=== PATIENT | female | born 1950 | race Caucasian/White ===

== ENCOUNTER 2019-09-15 13:00 | Outpatient (RCR) | payer SELFPAY | END 2019-09-15 23:59 | disposition home or self-care (01) | LOC: ANHAUDIO 13:00 | PROVIDERS: PCP Otolaryngology; Visit Provider Family Medicine | DX: Z46.1 Encounter for fitting and adjustment of hearing aid (principal) | CPT/HCPCS: 99199 ==

== ENCOUNTER 2020-03-07 11:22 | Outpatient (CLI) | payer MEDICARE, OTHER, SELFPAY ==
--- NOTE | ~2020-03-07 | XR_ITS ---
XR shoulder RT min 2V DATE: 03/07/2020 11:55 INDICATION: Chronic shoulder pain for years TECHNIQUE: 4 views COMPARISON: None FINDINGS: Diffuse osteopenia. Diffuse idiopathic skeletal hyperostosis of the thoracic spine. No fracture or dislocation, periosteal reaction or bone destruction of the right shoulder. IMPRESSION: Osteopenia No fracture or dislocation or abnormal soft tissue calcification of the right shoulder Reviewed, dictated and finalized at location B. IMPRESSION: Osteopenia No fracture or dislocation or abnormal soft tissue calcification of the right s houlder
== END 2020-03-07 11:23 | disposition home or self-care (01) ==
LOC: ANHIMG 11:35
PROVIDERS: PCP Physician Assistant; Visit Provider Physician Assistant
DX: M85.811 Other specified disorders of bone density and structure, right shoulder (principal)
CPT/HCPCS: 73030

== ENCOUNTER 2020-03-10 15:00 | Outpatient (RCR) | payer SELFPAY | END 2020-03-10 23:59 | disposition home or self-care (01) | LOC: ANHAUDIO 15:00 | PROVIDERS: PCP Physician Assistant; Visit Provider Otolaryngology | DX: Z46.1 Encounter for fitting and adjustment of hearing aid (principal) | CPT/HCPCS: 99199 ==

== ENCOUNTER 2020-03-29 15:38 | Outpatient (CLI) | payer MEDICARE, OTHER, SELFPAY ==
--- NOTE | ~2020-03-29 | MM_ITS ---
EXAMINATION: MM screening [facility] BI w rashad HISTORY: Screening mammogram TECHNIQUE: Craniocaudal and mediolateral oblique 3-D tomosynthesis images were obtained and synthetic 2-D images were generated. CAD analysis was submitted and interpreted. COMPARISON: 06/12/2018, 05/03/2016, 09/07/2014 BREAST PARENCHYMAL COMPOSITION: There are scattered areas of fibroglandular density. FINDINGS: There is no evidence of suspicious mass, calcification, or architectural distortion to sugg est malignancy in either breast. There has been no suspicious interval change. IMPRESSION: 1. No mammographic evidence of malignancy. 2. Recommend routine screening mammography in one year. BI-RADS Category 1: Negative Reviewed, dictated and finalized at location A.
== END 2020-03-29 15:39 | disposition home or self-care (01) ==
LOC: ANHIMG 15:53
PROVIDERS: PCP Physician Assistant; Visit Provider Obstetrics & Gynecology
DX: Z12.31 Encounter for screening mammogram for malignant neoplasm of breast (principal)
CPT/HCPCS: 77063; 77067

== ENCOUNTER 2020-09-11 14:51 | Emergency (ER) | payer MEDICARE, OTHER, SELFPAY ==
--- NOTE | 2020-09-11 14:58 | ED.SKABFB ---
HPI - Skin/Abscess/Foreign Bdy General Chief complaint: Skin/Abscess/Foreign Body Stated complaint: shingles Time Seen by Provider: 09/11/20 15:00 Source: patient, family and RN notes reviewed Mode of arrival: ambulatory Limitations: no limitations History of Present Illness HPI narrative: 70-year-old female presents to express care with complaints of burning and itching to the right lower back area that extends along her ribs which started night before last. She reports that last night she noticed red raised lesions along her right sided lower back which itch and burn. She denies any other lesions noted elsewhere, denies any fevers, chills or sweats, denies any other ill symptoms. MD complaint: rash Onset (ago): day(s) (2) Location: back Severity: mild Severity scale (1-10): 3 Quality: burning and pruritic Pain Consistency: intermittent Exacerbating factors: palpation Associated symptoms: itching and other (burning pain) Treatments prior to arrival: none Related Data Home Medications Medication Instructions Recorded Confirmed aspirin 81 mg PO DAILY 09/11/20 09/11/20 atenolol 09/11/20 metformin mg 09/11/20 omeprazole 09/11/20 simvastatin mg 09/11/20 Allergies Allergy/AdvReac Type Severity Reaction Status Date / Time No Known Allergies Allergy Verified 01/24/18 20:48 Review of Systems Review of Systems: Narrative: CONSTITUTIONAL: Denies fever, chills, or sweats. EYES: Denies visual changes, redness, or discharge. ENT: Denies rhinorrhea, congestion, sore throat, or otalgia. CARDIOVASCULAR: Denies chest pain, palpitations, or edema. RESPIRATORY: Denies cough or dyspnea. GASTROINTESTINAL: Denies abdominal pain, nausea, vomiting, or diarrhea. GENITOURINARY: Denies dysuria or hematuria. SKIN: positive rash or itching right lower back MUSCULOSKELETAL: Positive burning type of right lower back pain radiates to anterior along nerve line,no joint pain, or myalgia. NEUROLOGIC: Denies headache, numbness, or weakness. PSYCHIATRIC: Positive history of anxiety or depression. All systems reviewed & are unremarkable except as noted in HPI and below PMFSH Past Medical History Medical History (Updated 09/11/20 @ 15:43 by Vicenta Hernandes NP) Anxiety and depression Diabetes Hemorrhoids Hyperlipidemia Hypertension Hypothyroidism Surgical History Surgical History (Updated 09/11/20 @ 15:44 by Vicenta Hernandes NP) H/O section H/O hernia repair History of hysterectomy History of tubal ligation Hx of appendectomy Hx of dilation and curettage Hx of tonsillectomy S/p bilateral carpal tunnel release Family History Family History Father Diabetes mellitus Family history of diabetes mellitus in first degree relative Other Family history of arthritis Family history of cardiovascular disease Family history of malignant neoplasm Social History Social History (Updated 09/11/20 @ 15:44 by Vicenta Hernandes NP) Smoking status: Never smoker Alcohol intake: never Substance use: never Living arrangements: alone Additional living arrangements comments: lost spouse recently Gender identity (if verbalized by the patient): Female Comments At time of signature, agree with nursing past medical, surgical, social and family history. There is no relevant family history pertinent to the presenting complaint Exam Narrative: Exam Narrative: GENERAL: Well-appearing, well-nourished, and in no acute distress. HEAD: Normocephalic, atraumatic. EYES: PERRLA and EOMI. ENT: Nares clear, no rhinorrhea or epistaxis. Mucous membranes moist. NECK: Supple.no lymphadenopathy CHEST: Clear to auscultation. No respiratory distress.SAO2 97% on room air HEART: Regular rate and rhythm. No murmur heard. Normal peripheral pulses. ABDOMEN: Soft, nontender, nondistended, normal active bowel sounds. EXTREMITIES: Normal range of motion. No edema. SKIN: Warm, dry, re
[2020-09-11 15:01] VITALS: BP 139/77; PULSE 65; RESP 20; TEMP 36.4; O2SAT 97
[2020-09-11 15:05] VITALS: BP 139/77; PULSE 65; RESP 20; TEMP 36.4; O2SAT 97
== END 2020-09-11 15:26 | disposition home or self-care (01) ==
PROVIDERS: Emergency Provider Registered Nurse; PCP Family Medicine
DX: B02.9 Zoster without complications (principal); E11.9 Type 2 diabetes mellitus without complications; E78.5 Hyperlipidemia, unspecified; I10 Essential (primary) hypertension; E03.9 Hypothyroidism, unspecified; Z79.82 Long term (current) use of aspirin
CPT/HCPCS: 99213; G0463

== ENCOUNTER 2020-10-24 13:02 | Outpatient (CLI) | payer MEDICARE, OTHER, SELFPAY | END 2020-10-24 13:03 | disposition home or self-care (01) | LOC: ANHAUDIO 13:04 | PROVIDERS: PCP Family Medicine; Visit Provider Family Medicine | DX: H91.90 Unspecified hearing loss, unspecified ear (principal) | CPT/HCPCS: 92557; 92567 ==

== ENCOUNTER 2020-11-05 07:35 | Outpatient (CLI) | payer MEDICARE, OTHER, SELFPAY ==
--- NOTE | ~2020-11-05 | MR_ITS ---
EXAMINATION: MR brain IAC wo con DATE: 11/05/2020 08:46 INDICATION: Other specified right-sided hearing loss. TECHNIQUE: Magnetic resonance imaging (MRI) of the brain, brainstem, and internal auditory canals was performed without intravenous contrast. Sequences included sagittal and axial T1-weighted FSE, axial diffusion-weighted FS EPI, axial T2*-weighted GRE, axial T2-weighted FLAIR Propeller, axial T2-weigh rmoana Propeller, small [id number] coronal FIESTA, small pwwae-gx-fxmt coronal T1-weighted FSE, and s mall [id number]-ad-pgnv axial T1-weighted SPGR. Vanita Apparent diffusion coefficient (ADC) maps were cr eated. COMPARISON: None. FINDINGS: There are scattered areas of nonspecific increased T2-weighted signal intensity in the cere bral white matter, which is within normal limits for the patient's age. There is no intracranial hemo rrhage, acute infarction, or abnormal intracranial mass lesion. The ventricles are normal in size. Th ere is mild mucosal thickening in right maxillary sinus. The internal auditory canals and inner and m iddle ears are normal. The mastoid air cells are normal. The orbits are normal. IMPRESSION: 1. Normal aging brain. Reviewed, dictated and finalized at location A. IMPRESSION: 1. Normal aging brain.
== END 2020-11-05 07:36 | disposition home or self-care (01) ==
PROVIDERS: PCP Family Medicine; Visit Provider Family Medicine
DX: H91.8X1 Other specified hearing loss, right ear (principal)
CPT/HCPCS: 70551

== ENCOUNTER → 2020-11-25 06:36 | Outpatient (CLI) | payer MEDICARE, OTHER, SELFPAY ==
[2020-11-25 21:02] LABS: SARS-CoV-2 RNA PCR Positive
== END ==
PROVIDERS: PCP Family Medicine; Visit Provider Family Medicine
DX: U07.1 COVID-19 (principal)
CPT/HCPCS: C9803; U0003; U0005

== ENCOUNTER 2020-11-28 10:34 | Outpatient (RCR) | payer MEDICARE, OTHER, SELFPAY ==
[2020-11-28] MEDS: diphenhydrAMINE HCl CAP 25 MG CAPSULE PO (13:12)
[2020-11-28] MEDS: ACETAMINOPHEN 325 MG TABLET 650 MG PO (13:13)
[2020-11-28 13:18] VITALS: BP 145/70; PULSE 70; RESP 16; TEMP 36.8; O2SAT 96
[2020-11-28] MEDS: FAMOTIDINE 20 MG TABLET PO (13:51)
[2020-11-28 14:09] VITALS: BP 154/72; PULSE 68; RESP 16; TEMP 36.9; O2SAT 96
[2020-11-28 15:30] VITALS: BP 146/63; PULSE 66; RESP 16; TEMP 36.7; O2SAT 98
== END 2020-11-28 16:30 | disposition home or self-care (01) ==
LOC: AMCINF 10:34
PROVIDERS: PCP Family Medicine; Visit Provider Internal Medicine Hematology & Oncology
DX: Z23 Encounter for immunization (principal); U07.1 COVID-19
CPT/HCPCS: A9270; M0245; Q0245

== ENCOUNTER → 2021-03-21 05:37 | Outpatient (CLI) | payer MEDICARE, OTHER, SELFPAY ==
[2021-03-21 21:10] LABS: SARS-CoV-2 RNA PCR Negative
== END ==
PROVIDERS: PCP Family Medicine; Visit Provider Internal Medicine Gastroenterology
DX: Z01.812 Encounter for preprocedural laboratory examination (principal); Z20.822 Contact with and (suspected) exposure to COVID-19
CPT/HCPCS: C9803; U0003; U0005

== ENCOUNTER 2021-04-07 00:31 | Day surgery (SDC) | payer MEDICARE, OTHER, SELFPAY ==
[2021-03-14 15:04] VITALS: BMI 40.6
[2021-03-30 10:29] VITALS: BMI 40.3
--- NOTE | 2021-04-06 12:40 | PM.HPGS ---
History of Present Illness History of Present Illness Consent: Risks, benefits, and alternatives have been discussed and questions answered. Patient agrees to proceed with procedure. Chief complaint: neoplasm screening Narrative: Kayy Loza is a 70 year old female was referred for colon cancer screening. She had an unremarkable colonoscopy in 2007, except for the finding of hemorrhoids Review of Systems Review of Systems: All systems reviewed & are unremarkable except as noted in HPI and below PMFSH Past Medical History Medical History Anxiety and depression Diabetes Hemorrhoids Hyperlipidemia Hypertension Hypothyroidism Surgical History Surgical History H/O section H/O hernia repair History of hysterectomy History of tubal ligation Hx of appendectomy Hx of dilation and curettage Hx of tonsillectomy S/p bilateral carpal tunnel release Family History Family History Father Diabetes mellitus Family history of diabetes mellitus in first degree relative Other Family history of arthritis Family history of cardiovascular disease Family history of malignant neoplasm Social History Social History Smoking status: Never smoker Alcohol intake: never Substance use: never Living arrangements: alone Additional living arrangements comments: lost spouse recently Gender identity (if verbalized by the patient): Female Spiritual care concerns: No Meds Home Medications and Allergies Home Medications Medication Instructions Recorded Confirmed Type aspirin 81 mg PO DAILY 09/11/20 03/30/21 History atenolol 50 mg PO DAILY 09/11/20 04/07/21 History omeprazole 20 mg PO DAILY 09/11/20 03/30/21 History simvastatin 20 mg PO DAILY 09/11/20 03/30/21 History loratadine [Claritin] 10 mg PO DAILY PRN 11/28/20 03/30/21 History metformin 1,000 mg PO DAILY 11/28/20 03/30/21 History multivitamin 1 tablet PO DAILY 11/28/20 03/30/21 History sertraline 100 mg PO DAILY 11/28/20 03/30/21 History Allergies Allergy/AdvReac Type Severity Reaction Status Date / Time No Known Allergies Allergy Verified 04/07/21 11:08 Exam Resp: Auscultation: clear to auscultation bilaterally Cardio: Rate: regular rate Rhythm: regular rhythm GI: GI Palp: Yes Soft to palpation and No Tenderness to palpation present (GI) Assessment and Plan Assessment and plan (1) Colon cancer screening: Code(s): Z12.11 - Encounter for screening for malignant neoplasm of colon Status: Acute Assessment and Plan: Colonoscopy with possible biopsy or polypectomy or cautery or injection of substances.
[2021-04-07 11:18] VITALS: BP 144/80; PULSE 62; RESP 18; TEMP 36.1; O2SAT 96; BMI 39.8
[2021-04-07 11:29] LABS: Glucose Point of Care 116 mg/dl (65-105)
[2021-04-07] MEDS: LACTATED RINGERS 1,000 ML 150 ML IV CONT (11:30)
--- NOTE | 2021-04-07 11:45 | WPDANESEPPF ---
Anes - Initial Pre Proc Eval Procedure: Operation Date: 04/07/21 11:30 Proposed Procedures p Screening Colonoscopy - Jairo Jimenez MD Date/Time: 04/07/21 11:45 Surgeon: Jairo Jimenez MD Pre Op Diagnosis: neoplasm screening Patient Data Age: 70 Gender: F Height: 1.57 m Weight: 98.8 kg Last Vital Signs Temp 97 F L 04/07/21 11:18 Pulse 62 04/07/21 11:18 Resp 18 04/07/21 11:18 BP 144/80 H 04/07/21 11:18 Pulse Ox 96 04/07/21 11:18 Allergies Allergy/AdvReac Type Severity Reaction Status Date / Time No Known Allergies Allergy Verified 04/07/21 11:08 Home Medications Medication Instructions Recorded Confirmed Type aspirin 81 mg PO DAILY 09/11/20 03/30/21 History atenolol 50 mg PO DAILY 09/11/20 04/07/21 History omeprazole 20 mg PO DAILY 09/11/20 03/30/21 History simvastatin 20 mg PO DAILY 09/11/20 03/30/21 History loratadine [Claritin] 10 mg PO DAILY PRN 11/28/20 03/30/21 History metformin 1,000 mg PO DAILY 11/28/20 03/30/21 History multivitamin 1 tablet PO DAILY 11/28/20 03/30/21 History sertraline 100 mg PO DAILY 11/28/20 03/30/21 History Laboratory Tests 04/07/21 11:27 POC Capillary Glucose 116 mg/dl H mg/dl (65-105) Patient hx anesthesia problems: none Family hx anesthesia problems: none PMFSH Past Medical History Medical History Anxiety and depression Diabetes Hemorrhoids Hyperlipidemia Hypertension Hypothyroidism Surgical History Surgical History H/O section H/O hernia repair History of hysterectomy History of tubal ligation Hx of appendectomy Hx of dilation and curettage Hx of tonsillectomy S/p bilateral carpal tunnel release Family History Family History Father Diabetes mellitus Family history of diabetes mellitus in first degree relative Other Family history of arthritis Family history of cardiovascular disease Family history of malignant neoplasm Social History Social History Smoking status: Never smoker Alcohol intake: never Substance use: never Living arrangements: alone Additional living arrangements comments: lost spouse recently Gender identity (if verbalized by the patient): Female Spiritual care concerns: No Anes - Eval Final PreProcedure Day of Procedure 04/07/21 11:45 Patient weight: morbidly obese Heart: regular rate and rhythm Lungs: clear to auscultation Airway: Mallampati scale class II Neurological: alert and oriented Last oral intake: >/= 8 hours ASA classification: III Emergent: yes Anesthetic plan: proceed Anesthesia type and monitoring: general GIVS and standard monitoring Informed Consent: The patient's anesthetic plan and its attendant risks and benefits were discussed with the patient/family/POA. Questions were solicited and answers provided to the satisfaction of the patient/family/POA.
[2021-04-07 12:13] VITALS: BP 106/58; PULSE 55; RESP 21; O2SAT 98
[2021-04-07 12:23] VITALS: BP 108/62; PULSE 58; RESP 15; O2SAT 98
[2021-04-07 12:33] VITALS: BP 121/70; PULSE 56; RESP 20; O2SAT 96
== END 2021-04-07 12:53 | disposition home or self-care (01) ==
PROVIDERS: PCP Family Medicine; Visit Provider Internal Medicine Gastroenterology
PROC: 0DJD8ZZ Inspection of Lower Intestinal Tract, Via Natural or Artificial Opening Endoscopic (ICD-10-PCS; CPT 45378; principal; 2021-04-07 11:30)
DX: Z12.11 Encounter for screening for malignant neoplasm of colon (principal); I10 Essential (primary) hypertension; E11.9 Type 2 diabetes mellitus without complications; E78.5 Hyperlipidemia, unspecified; E03.9 Hypothyroidism, unspecified; F32.9 Major depressive disorder, single episode, unspecified; F41.9 Anxiety disorder, unspecified; Z90.710 Acquired absence of both cervix and uterus
CPT/HCPCS: G0121; 82948; J2704; J7120

== ENCOUNTER → 2021-05-19 13:16 | Outpatient (CLI) | payer MEDICARE, OTHER, SELFPAY ==
--- NOTE | ~2021-05-19 | CT_ITS ---
EXAMINATION: CT abdomen pelvis wo con DATE: 05/19/2021 14:08 INDICATION: Generalized abdominal pain TECHNIQUE: Computed tomography (CT) of the abdomen and pelvis was performed without intravenous contr ast. Automated exposure control and iterative reconstruction technique were employed. The dose-length product was 1014.09 mGy-cm. COMPARISON: CT abdomen dated 06/10/2008 FINDINGS: Lung bases are clear. Heart size is normal. Small amount of atherosclerotic coronary artery calcifica tion. No pericardial or pleural effusion. Liver, gallbladder, bilateral adrenal glands are normal. Co uple tiny foci of gas at the body of the pancreas likely within a pancreatic duct. Pancreas is otherw ise unremarkable with no surrounding inflammatory stranding to suggest acute interstitial pancreatiti s. Multiple splenic calcifications consistent with old granulomatous disease. Bilateral hyperdense pr oteinaceous/hemorrhagic cysts the largest on the left measuring 10 mm . No urolithiasis or hydronephr osis. There is mild colonic diverticulosis with a sigmoid predominance. There is no adjacent inflamm atory change to suggest diverticulitis. The appendix is again not visualized and likely surgically ab sent. No bowel obstruction. Interval ventral hernia mesh repair. Bladder is normal. The uterus is not identified and has likely been surgically resected. No free intraperitoneal gas or fluid. No patholo gically enlarged abdominal or pelvic lymphadenopathy. Mild lumbar levocurvature with mild spondylosis . IMPRESSION: 1. A couple tiny foci of gas within the body of the pancreas likely within the main pancreatic duct w hich is of indeterminate significance. No inflammatory stranding to suggest acute interstitial pancre atitis but would correlate with amylase and lipase levels and for history of prior sphincterotomy. Reviewed, dictated and finalized at location A. IMPRESSION: 1. A couple tiny foci of gas within the body of the pancreas likely within the main pancreatic duct which is of indeterminate significance. No inflammatory st randing to suggest acute interstitial pancreatitis but would correlate with case lase and lipase levels and for history of prior sphincterotomy.
== END ==
PROVIDERS: PCP Family Medicine; Visit Provider Family Medicine
DX: R10.84 Generalized abdominal pain (principal)
CPT/HCPCS: 74176

== ENCOUNTER → 2021-08-01 02:01 | Outpatient (CLI) | payer MEDICARE, OTHER, SELFPAY ==
[2021-08-02 03:58] LABS: SARS-CoV-2 RNA PCR Negative
== END ==
PROVIDERS: PCP Family Medicine; Visit Provider Physician Assistant
DX: R68.89 Other general symptoms and signs (principal); Z20.822 Contact with and (suspected) exposure to COVID-19
CPT/HCPCS: C9803; U0003; U0005

== ENCOUNTER → 2022-11-28 11:51 | Outpatient (CLI) | payer MEDICARE, SELFPAY ==
--- NOTE | ~2022-11-28 | XR_ITS ---
EXAMINATION: XR sacrum coccyx min 2V INDICATION: Sacrococcygeal disorders not elsewhere classified TECHNIQUE: Three views of the sacrum and coccyx are obtained. COMPARISON: None available FINDINGS: Bone alignment is normal. There is no fracture. There is moderate lower lumbar spondylosis. Phleboliths are noted in the pelvis. There is mild osteoarthritis of the hips. IMPRESSION: 1. No acute osseous abnormality. Reviewed, dictated and finalized at location B.
--- NOTE | ~2022-11-28 | MM_ITS ---
EXAMINATION: MM screening [facility] BI w rashad HISTORY: Screening mammogram TECHNIQUE: Craniocaudal and mediolateral oblique 3-D tomosynthesis images were obtained and synthetic 2-D images were generated. CAD analysis was submitted and interpreted. COMPARISON: 03/29/2020, 06/12/2018, 05/03/2016 lateral screening mammogram examinations BREAST PARENCHYMAL COMPOSITION: There are scattered areas of fibroglandular density. FINDINGS: There is no evidence of suspicious mass, calcification, or architectural distortion to sugg est malignancy in either breast. There has been no suspicious interval change. IMPRESSION: 1. No mammographic evidence of malignancy. 2. Recommend routine screening mammography in one year. BI-RADS Category 1: Negative Reviewed, dictated and finalized at location A.
== END ==
PROVIDERS: PCP Family Medicine; Visit Provider Physician Assistant
DX: Z12.31 Encounter for screening mammogram for malignant neoplasm of breast (principal); M53.3 Sacrococcygeal disorders, not elsewhere classified
CPT/HCPCS: 72220; 77063; 77067

== ENCOUNTER 2023-03-16 13:05 | Emergency (ER) | payer MEDICARE, SELFPAY ==
[2023-03-16 13:15] VITALS: BP 140/51; PULSE 59; RESP 16; TEMP 36.9; O2SAT 97
--- NOTE | 2023-03-16 13:38 | ED.FALL ---
HPI - Fall General Chief Complaint: Eye Problems Stated Complaint: Lt Eye Swelling Due To Fall Time Seen by Provider: 03/16/23 13:28 Source: patient and RN notes reviewed Mode of arrival: ambulatory Limitations: no limitations History of Present Illness HPI Narrative: Patient presents today complaining of a trip and fall at home approximately 1 hour prior to arrival. States she was walking on her hardwood floor in her kitchen when she tripped and fell onto her bilateral knees. As she was falling her left upper eyelid grazed a kitchen cabinet on her way down. She did not strike her head on the cabinet or ground. No loss of consciousness, vision changes, dizziness or lightheadedness, nausea, neck pain, numbness or tingling, or any additional symptoms. She denies any pain at this time. Related Data Home Medications Medication Instructions Recorded Confirmed aspirin 81 mg tablet 81 mg PO DAILY 09/11/20 03/16/23 atenolol 50 mg tablet 50 mg PO DAILY 09/11/20 03/16/23 omeprazole 20 mg capsule,delayed 20 mg PO DAILY 09/11/20 03/16/23 release simvastatin 20 mg tablet 20 mg PO DAILY 09/11/20 03/16/23 multivitamin 1 tablet PO DAILY 11/28/20 03/16/23 fluticasone propionate 50 2 spray intranasal DAILY 09/10/22 03/16/23 mcg/actuation nasal spray,suspension metformin 850 mg tablet 850 mg PO BID 09/10/22 03/16/23 sertraline 100 mg tablet 100 mg PO DAILY 09/10/22 03/16/23 cetirizine 10 mg capsule (Zyrtec) 10 mg PO DAILY PRN Allergy Symptoms 11/28/22 03/16/23 Allergies Allergy/AdvReac Type Severity Reaction Status Date / Time No Known Allergies Allergy Verified 03/16/23 13:11 Review of Systems Review of Systems: CONSTITUTIONAL: Denies body aches, fever, chills, or sweats. EYES: Denies visual changes, redness, or discharge. + left upper eyelid injury ENT: Denies rhinorrhea, congestion, sore throat, or otalgia. CARDIOVASCULAR: Denies chest pain, palpitations, or edema. RESPIRATORY: Denies cough or dyspnea. GASTROINTESTINAL: Denies abdominal pain, nausea, vomiting, or diarrhea. GENITOURINARY: Denies dysuria or hematuria. SKIN: Denies rash, itching, or wounds. MUSCULOSKELETAL: Denies back pain, joint pain, or myalgia. NEUROLOGIC: Denies headache, numbness, tingling, or weakness. PSYCH: Denies depression or anxiety. [facility] Past Medical History Medical History Allergic rhinitis Atherosclerotic heart disease of [place] coronary artery without angina pectoris Chronic kidney disease, stage 2 (mild) Hyperlipidemia Hypertensive chronic kidney disease with stage 1 through stage 4 chronic kidney disease, or unspecified chronic kidney disease Major depressive disorder, single episode, unspecified Prediabetes Surgical History Surgical History H/O section 1976,1978 H/O hernia repair abdominal hernia repair 08/03/2008 History of hysterectomy 1999 History of tubal ligation Hx of appendectomy Hx of dilation and curettage 1979 Hx of tonsillectomy 1972 S/p bilateral carpal tunnel release 1998 S/P trigger finger release 2001 Family History Family History Father Diabetes mellitus Family history of diabetes mellitus in first degree relative Other Family history of arthritis Family history of cardiovascular disease Family history of malignant neoplasm Social History Social History Smoking status: Never smoker Alcohol intake: never Substance use: never Substance use type: does not use Lack of Transportation: No Lack of Food: Never True Current Housing: I Have Housing Concerned About Future Housing: No Difficulty Paying Gas/Electric Bills: No Difficulty Paying for Meds: No Currently Unemployed: YES Education: High School Diploma/GED Difficu
== END 2023-03-16 13:48 | disposition home or self-care (01) ==
PROVIDERS: Emergency Provider Nurse Practitioner; PCP Physician Assistant
DX: S00.12XA Contusion of left eyelid and periocular area, initial encounter (principal); W01.198A Fall on same level from slipping, tripping and stumbling with subsequent striking against other object, initial encounter; I25.10 Atherosclerotic heart disease of native coronary artery without angina pectoris; E78.5 Hyperlipidemia, unspecified; F32.9 Major depressive disorder, single episode, unspecified; I13.10 Hypertensive heart and chronic kidney disease without heart failure, with stage 1 through stage 4 chronic kidney disease, or unspecified chronic kidney disease; E11.22 Type 2 diabetes mellitus with diabetic chronic kidney disease; N18.2 Chronic kidney disease, stage 2 (mild); Z79.84 Long term (current) use of oral hypoglycemic drugs; Z79.82 Long term (current) use of aspirin
CPT/HCPCS: 99212; G0463

== ENCOUNTER 2023-06-14 13:55 | Outpatient (CLI) | payer MEDICARE, SELFPAY ==
--- NOTE | ~2023-06-14 | XR_ITS ---
EXAMINATION: XR chest 2V DATE: 06/14/2023 14:13 INDICATION: Cough TECHNIQUE: PA and lateral views of the chest are obtained. COMPARISON: None available FINDINGS: The lungs are free of acute opacities. No pleural effusion or pneumothorax. The cardiomedia stinal silhouette is normal. There is mild thoracic spondylosis. IMPRESSION: 1. No acute cardiopulmonary abnormality. Reviewed, dictated and finalized at location B. [employer]
== END 2023-06-14 13:56 | disposition home or self-care (01) ==
PROVIDERS: PCP Family Medicine; Visit Provider Physician Assistant
DX: R09.89 Other specified symptoms and signs involving the circulatory and respiratory systems (principal)
CPT/HCPCS: 71046

== ENCOUNTER 2023-12-20 15:16 | Outpatient (CLI) | payer MEDICARE, SELFPAY ==
--- NOTE | ~2023-12-20 | MM_ITS ---
EXAMINATION: MM screening tye BI w rashad HISTORY: Screening mammogram TECHNIQUE: Craniocaudal and mediolateral oblique 3-D tomosynthesis images were obtained and synthetic 2-D images were generated. CAD analysis was submitted and interpreted. COMPARISON: November 28, 2022, March 29, 2020 bilateral screening mammogram examinations BREAST PARENCHYMAL COMPOSITION: There are scattered areas of fibroglandular density. FINDINGS: There is no evidence of suspicious mass, calcification, or architectural distortion to sugg est malignancy in either breast. There has been no suspicious interval change. IMPRESSION: 1. No mammographic evidence of malignancy. 2. Recommend routine screening mammography in one year. BI-RADS Category 1: Negative Reviewed, dictated and finalized at location B.
== END 2023-12-20 15:17 ==
LOC: MICIMG 15:17
PROVIDERS: PCP Physician Assistant; Visit Provider Physician Assistant
DX: Z12.31 Encounter for screening mammogram for malignant neoplasm of breast (principal)
CPT/HCPCS: 77063; 77067

== ENCOUNTER 2024-04-10 08:45 | Outpatient (CLI) | payer MEDICARE, SELFPAY ==
--- NOTE | ~2024-04-10 | MMUS_ITS ---
EXAMINATION: MM diagnostic tye LT w rashad, US breast LT limited HISTORY: Palpable left breast abnormality TECHNIQUE: Additional 3-D tomosynthesis images of the left breast were performed and synthetic 2-D im ages were generated. CAD analysis was submitted and interpreted. High resolution Limited left breast ultrasound was performed. COMPARISON: Comparison to multiple prior studies sequentially, with oldest reviewed study dated 10/2014. BREAST PARENCHYMAL COMPOSITION: Dense: The breasts are heterogeneously dense, which may obscure small masses FINDINGS: MAMMOGRAPHIC FINDINGS: There are no suspicious masses, calcifications or architectural distortion in the left breast to sugg est malignancy. ULTRASOUND: Complete US of all 4 quadrants of the breast/s and retroareolar region was reviewed. At 9:00, 6 cm fr om the nipple there is a 4 mm cyst. No suspicious masses to suggest malignancy. IMPRESSION: 1. No evidence for malignancy in the left breast. 2. Routine yearly screening mammogram and regular clinical breast examination are recommended. BI-RADS Category 1: Negative Reviewed, dictated and finalized at location B. IMPRESSION: 1. No evidence for malignancy in the left breast. 2. Routine yearly screening mammogram and regular clinical breast examination a re recommended. BI-RADS Category 1: Negative
== END 2024-04-10 08:46 | disposition home or self-care (01) ==
PROVIDERS: PCP Family Medicine; Visit Provider Obstetrics & Gynecology
DX: N64.59 Other signs and symptoms in breast (principal)
CPT/HCPCS: 76642; 77061; 77065; G0279

== ENCOUNTER 2024-06-16 09:18 | Outpatient (CLI) | payer MEDICARE, SELFPAY ==
--- NOTE | ~2024-06-16 | XR_ITS ---
XR hip LT min 2V Ordering provider: Mumtaz Manjarrez MD History: . M25.552 - Pain in left hip . Comparison: None. FINDINGS: BONES: No acute fracture or dislocation. HIP JOINT SPACES: Mild osteoarthritic changes. SACROILIAC JOINT SPACES/LUMBAR SPINE: The sacroiliac joint spaces are normal. Mild degenerative faustin es of the visualized lower lumbar spine. PUBIC SYMPHYSIS: Pubic symphysitis. SOFT TISSUES: Normal. IMPRESSION: No acute osseous abnormality pelvis and left hip. Reviewed, dictated and finalized at location A. [facility] [employer]
== END 2024-06-16 09:19 | disposition home or self-care (01) ==
PROVIDERS: PCP Family Medicine; Visit Provider Family Medicine
DX: M25.552 Pain in left hip (principal)
CPT/HCPCS: 73502

== ENCOUNTER 2024-06-30 10:47 | Emergency (ER) | payer MEDICARE, SELFPAY ==
[2024-06-30 10:58] VITALS: BP 120/54; PULSE 78; RESP 16; TEMP 36.4; O2SAT 100
--- NOTE | 2024-06-30 11:16 | ED_ITS ---
HPI - Dental/Oral General Chief complaint: Dental/Oral Stated complaint: tooth pain Time Seen by Provider: 06/30/24 11:16 Source: patient Mode of arrival: ambulatory Limitations: no limitations History of Present Illness HPI Narrative: 74-year-old female presents with complaint of left lower dental pain for 4 days. Patient called her dentist and was not able to get a hold of them so she then called her primary care physician who sent in antibiotic for her because she was out of town. Patient scheduled appointment with a new dentist and will be seen on July 06 because her old dentist never called her back. Today she noticed of red patch under her chin. Called dentist and was told she should come to the urgent care for an antibiotic shot. Patient has been taking penicillin 3 times a day since Saturday. After looking at prescription patient was actually supposed to be taking the penicillin 4 times a day. Patient is afebrile denies nausea vomiting. States that left lower dental pain is imp roving since she started penicillin. Was concerned that red patch may be caused from blood infection . All systems reviewed and negative except as noted above. Related Data Home Medications Medication Instructions Recorded Confirmed aspirin 81 mg tablet 81 mg PO DAILY 09/11/20 06/30/24 multivitamin 1 tablet PO DAILY 11/28/20 06/30/24 fluticasone propionate 50 2 spray intranasal DAILY 09/10/22 06/30/24 mcg/actuation nasal spray,suspension cetirizine 10 mg capsule (Zyrtec) 10 mg PO DAILY PRN Allergy Symptoms 11/28/22 06/30/24 penicillin V potassium 500 mg 500 mg 06/30/24 tablet Allergies Allergy/AdvReac Type Severity Reaction Status Date / Time No Known Allergies Allergy Verified 06/30/24 11:16 Review of Systems Review of Systems: CONSTITUTIONAL: Denies fever, chills, or sweats. EYES: Denies visual changes, redness, or discharge. ENT: Denies rhinorrhea, congestion, sore throat, or otalgia. Reports left lower dental pain. CARDIOVASCULAR: Denies chest pain, palpitations, or edema. RESPIRATORY: Denies cough or dyspnea. GASTROINTESTINAL: Denies abdominal pain, nausea, vomiting, or diarrhea. GENITOURINARY: Denies dysuria or hematuria. SKIN: Denies rash or itching. Reports red patch of skin under chin. MUSCULOSKELETAL: Denies back pain, joint pain, or myalgia. NEUROLOGIC: Denies headache, numbness, or weakness. PSYCHIATRIC: Denies anxiety or depression. All other systems reviewed are negative, except as documented in HPI. [facility] Past Medical History Medical History Allergic rhinitis Atherosclerotic heart disease of [place] coronary artery without angina pectoris Chronic kidney disease, stage 2 (mild) Hyperlipidemia Hypertensive chronic kidney disease with stage 1 through stage 4 chronic kidney disease, or unspecified chronic kidney disease Major depressive disorder, single episode, unspecified Prediabetes Surgical History Surgical History H/O section 1976,1978 H/O hernia repair abdominal hernia repair 08/03/2008 History of hysterectomy 1999 History of tubal ligation Hx of appendectomy Hx of dilation and curettage 1979 Hx of tonsillectomy 1972 S/p bilateral carpal tunnel release 1998 S/P trigger finger release 2001 Family History Family History Father Diabetes mellitus Family history of diabetes mellitus in first degree relative Other Family history of arthritis Family history of cardiovascular disease Family history of malignant neoplasm Social History Social History Smoking status: Never smoker Alcohol intake: never Substance use: never Substance use type: does not use Do You Feel Safe in your Home?: Yes Lack of Transportation: No Lack of Food: Never True Current Housing: I Have Housing Concerned About Future Housing: No Difficulty Paying Gas/Electric Bills: No Difficulty Paying for Meds: No Currently Unemployed: YES Education: High School Diploma/GED Difficulty w/ Childcare or Family Care: No Living arrangements: alone Additional living arrangements comments: lost spouse recently Occupation/Education: retired Gender identity (if verbalized by the patient): Female Sexual Orientation (if Verbalized by the Patient): Straight or Heterosexual Spiritual care concerns: No Comments At time of signature, agree with nursing past medical, surgical, social and family history. There is no relevant family history pertinent to the presenting complaint. Exam Narrative: GENERAL: This is a well-nourished, well-developed patient, in no apparent distress. HEAD: normocephalic, atraumatic. EYES: PERRL. Sclera clear/white. Vision is grossly intact. EARS: External ears normal NOSE: External nose normal NECK: Neck supple, non-tender without lymphadenopathy, masses or thyromegaly. CARDIOVASCULAR: Regular rate and rhythm without murmurs, gallops, or rubs. RESPIRATORY: Clear to auscultation. Breath sounds equal bilaterally. No wheezes, rales, or rhonchi. SKIN: warm, Dry, intact with no suspicious lesions or rash, good texture and turgor. Small area of erythema approximately 3 cm diameter under chin. No war mth or swelling noted. Could be from current dental infection or could be dry skin or redness if patient has been rubbing this area due to dental pain. No drainage or fluctuance concerning for abscess. NEURO: awake, alert, and oriented to person, place and time. There were no obvious focal neurologic abnormalities. EXTREMITIES: No joint tenderness, effusion, or edema noted. Course Course Level of Care: Express Care Visit Vital Signs Vital signs: Vital Signs Temperature 36.4 C 06/30/24 10:58 Pulse Rate 78 06/30/24 10:58 Respiratory Rate 16 06/30/24 10:58 Blood Pressure 120/54 L 06/30/24 10:58 Pulse Oximetry 100 06/30/24 10:58 Oxygen Delivery Room Air 06/30/24 10:58 Temperature 36.4 C 06/30/24 10:58 Pulse Rate 78 06/30/24 10:58 Respiratory Rate 16 06/30/24 10:58 Blood Pressure 120/54 L 06/30/24 10:58 Pulse Oximetry 100 06/30/24 10:58 Oxygen Delivery Room Air 06/30/24 10:58 Reviewed MDM - Dental/Oral MDM Narrative Medical decision making narrative: patient given IM ceftriaxone today as it was recommended by her dentist to treat current dental infection. She does have some erythema noted under her chin but there are no other signs concerning for cellulitis or abscess. She has been taking her antibiotic 3 times a day instead of 4 times a day. Educated regarding this. Has appoint with Her dentist on July 06. will go to the ER for any worsening of symptoms. Patient is aware of diagnosis, understands and agrees to treatment plan. Anticipatory guidance given. Patient agrees to follow-up as directed and is aware of reasons to seek care at the emergency department. Portions of this record may have been created with voice recognition software Discharge Plan Discharge Clinical Impression: Dental infection Patient Disposition: Home, Self-Care Condition: Stable Instructions: Antibiotic Form, Dental Abscess (ED) Additional Instructions: Take penicillin prescription as prescribed until gone. Take ibuprofen or Tylenol every 6-8 hours as needed for pain. Follow-up with your dentist at scheduled appointment. For any worsening of symptoms such as increasing redness, swelling, fever go to the ER. Prescriptions: No Action aspirin 81 mg Tablet 81 mg PO DAILY penicillin V potassium 500 mg tablet 500 mg multivitamin Tablet 1 tablet PO DAILY Zyrtec 10 mg capsule 10 mg PO DAILY PRN (Reason: Allergy Symptoms) diclofenac sodium 75 mg tablet,delayed release (DR/EC) 75 mg PO BID Qty: 30 0RF fluticasone propionate 50 mcg/actuation spray,suspension 2 spray intranasal DAILY Ozempic 1 mg/dose (4 mg/3 mL) pen injector 1 mg subcut WEEKLY Qty: 3 0RF montelukast 10 mg tablet See Rx Instructions .ROUTE .COMPLEX Qty: 90 2RF Dose Instruction: TAKE 1 TABLET BY MOUTH DAILY Rx Instructions: TAKE 1 TABLET BY MOUTH DAILY sertraline 100 mg tablet See Rx Instructions .ROUTE .COMPLEX Qty: 90 3RF Dose Instruction: TAKE 1 TABLET BY MOUTH EVERY DAY Rx Instructions: TAKE 1 TABLET BY MOUTH EVERY DAY atenolol 50 mg tablet See Rx Instructions .ROUTE .COMPLEX Qty: 90 3RF Dose Instruction: TAKE 1 TABLET BY MOUTH EVERY DAY Rx Instructions: TAKE 1 TABLET BY MOUTH EVERY DAY simvastatin 20 mg tablet See Rx Instructions .ROUTE .COMPLEX Qty: 90 3RF Dose Instruction: TAKE 1 TABLET BY MOUTH EVERY EVENING Rx Instructions: TAKE 1 TABLET BY MOUTH EVERY EVENING omeprazole 20 mg capsule,delayed release(DR/EC) See Rx Instructions .ROUTE .COMPLEX Qty: 90 3RF Dose Instruction: TAKE 1 CAPSULE BY MOUTH EVERY DAY Rx Instructions: TAKE 1 CAPSULE BY MOUTH EVERY DAY penicillin V potassium 500 mg tablet 500 mg PO Q6H Qty: 40 0RF Follow-up/Referrals: Mumtaz Manjarrez MD [Primary Care Provider] - Time of Disposition: 11:56
[2024-06-30] MEDS: cefTRIAXone 1 GM, LIDOCAINE HCL 1% LOCAL INJ 2.1 ML IM (11:50)
== END 2024-06-30 12:01 | disposition home or self-care (01) ==
PROVIDERS: Emergency Provider Nurse Practitioner Family; PCP Family Medicine
DX: K04.7 Periapical abscess without sinus (principal); I13.10 Hypertensive heart and chronic kidney disease without heart failure, with stage 1 through stage 4 chronic kidney disease, or unspecified chronic kidney disease; N18.2 Chronic kidney disease, stage 2 (mild); I25.10 Atherosclerotic heart disease of native coronary artery without angina pectoris; E78.5 Hyperlipidemia, unspecified; R73.03 Prediabetes; Z79.82 Long term (current) use of aspirin
CPT/HCPCS: 96372; 99213; G0463; J0696; J2003

== ENCOUNTER 2024-10-15 12:00 | Outpatient (CLI) | payer MEDICARE, SELFPAY ==
--- NOTE | ~2024-10-15 | XR_ITS ---
AP and lateral views of the right hip Clinical history: Pain Findings: No acute fracture or dislocation is seen. Osseous alignment is anatomic. Right hip joint is intact. Soft tissues are unremarkable. Impression: No significant abnormality is seen. Reviewed, dictated and finalized at location M. Impression: No significant abnormality is seen.
--- NOTE | ~2024-10-15 | XR_ITS ---
3 VIEWS LUMBAR SPINE Ordering provider: Ashley Echols PA-C History: . M54.50 Low back pain, radiating to rt side, fall x 1 wk ago . Comparison: None. FINDINGS: VERTEBRAL BODIES:Levoscoliosis. Possible fracture in the last excision segment. Clinical correlation for tenderness in the area advised. Otherwise, No visible fracture or subluxation. Degenerative faustin es of the spine. DISK SPACES: Narrowing of the disc spaces L1-L2, L2-L3, L3-L4 and L5-S1. Multilevel facet joint disease. SOFT TISSUES: Normal. IMPRESSION: No acute osseous abnormality lumbar spine. Possible fracture of the last coccygeal segment. Clinical evaluation advised. Levoscoliosis. Multilevel degenerative disc and facet joint disease. Reviewed, dictated and finalized at location A.
--- OUTSIDE RECORDS SUMMARY | 2024-10-15 13:41 | XMS_ITS | CONTINUITY OF CARE DOCUMENT ---
Author Name vianca coley Address Unknown Organization [facility] Address [address] [place] [address] [address] [place] [address] Phone [phone] Care Team Providers Care Credit Collections Specialist Name Role Phone vianca coley Unavailable Unavailable INSURANCE PROVIDERS Payer name Policy type / Coverage type [employer] party ID Pending sale to [facility] [id number]
--- OUTSIDE RECORDS SUMMARY | 2024-10-15 13:41 | XMS_ITS | Referral Summary ---
Author Organization [facility] Address [address] [place] [address] Care Team Providers Care Bellman Name Role Phone Mumtaz Manjarrez MD Primary Care Provider [phone] Allergies No known active allergies Medications metFORMIN (GLUCOPHAGE) 850 mg tablet Take 850 mg by mouth 11/12/2020 Active sertraline (ZOLOFT) 100 mg tablet Take 100 mg by mouth daily 11/01/2020 Active atenoloL (TENORMIN) 50 mg tablet Take 50 mg by mouth daily 12/14/2020 Active simvastatin (ZOCOR) 20 mg tablet Take 20 mg by mouth nightly 11/23/2020 Active Active Problems No known active problems Social History Tobacco Use Types Packs/Day Years Used Date Smoking Tobacco: Never Smokeless Tobacco: Never AUDIT-C Answer Date Recorded Q1: How often do you have a drink containing alc ohol? 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 Gender Identity Not on file Sexual Orientation Not on file Last Filed Vital Signs Vital Sign Reading Time Taken Comments Blood Pressure 116/70 01/26/2021 3:38 PM CDT Pulse 65 01/26/2021 3:38 PM CDT Temperature - - Respiratory Rate - - Oxygen Saturation - - Inhaled Oxygen Concentration - - Weight 99.8 kg (220 lb) 01/26/2021 3:35 PM CDT Height 160 cm (5' 3 ) 01/26/2021 3:35 PM CDT Body Mass Index 38.97 01/26/2021 3:35 PM CDT Plan of Treatment Not on file Insurance MEDICARE [facility] Care Teams Bellman Relationship Specialty Start Date End Date Mumtaz Manjarrez MD [address] [place] [id number] PCP - General Family Medicine 11/14/20
--- OUTSIDE RECORDS SUMMARY | 2024-10-15 13:42 | XMS_ITS | Clinical Summary ---
Author Organization [facility] Address [address] [place] [address] Care Team Providers Care Making Line Worker Name Role Phone Mumtaz Manjarrez MD Primary Care Provider [phone] Allergies No known active allergies Medications metFORMIN (GLUCOPHAGE) 850 mg tablet Take 850 mg by mouth 11/12/2020 Active sertraline (ZOLOFT) 100 mg tablet Take 100 mg by mouth daily 11/01/2020 Active atenoloL (TENORMIN) 50 mg tablet Take 50 mg by mouth daily 12/14/2020 Active simvastatin (ZOCOR) 20 mg tablet Take 20 mg by mouth nightly 11/23/2020 Active Active Problems No known active problems Surgical History Surgery Date Site/Laterality Comments SECTION 08/05/1976 - 08/04/1977 APPENDECTOMY 08/05/1978 - 08/04/1979 CARPAL TUNNEL RELEASE HYSTERECTOMY 08/05/1999 - 08/04/2000 HERNIA MESH REMOVAL 08/05/2009 - 08/04/2010 TONSILLECTOMY 08/05/1973 - 08/04/1974 Medical History Medical History Date Comments Anxiety Diabetes (HCC) HTN (hypertension) Recurrent sinus infections HL (hearing loss) Family History Medical History Relation Name Comments Colon cancer Other Diabetes Other Hodgkin's lymphoma Other Liver disease Other Relation Name Status Comments Other Social History Tobacco Use Types Packs/Day Years [...] on file 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
== END 2024-10-15 12:01 | disposition home or self-care (01) ==
PROVIDERS: PCP Family Medicine
DX: M25.551 Pain in right hip (principal); M51.369 Other intervertebral disc degeneration, lumbar region without mention of lumbar back pain or lower extremity pain
CPT/HCPCS: 72110; 73502

== ENCOUNTER 2025-02-16 10:55 | Outpatient (CLI) | payer MEDICARE, SELFPAY ==
--- NOTE | ~2025-02-16 | MMUS_ITS ---
EXAMINATION: MM diagnostic tye BI w rashad, US breast RT complete HISTORY: Right breast pain TECHNIQUE: Additional 3-D tomosynthesis images of the breasts were performed and synthetic 2-D images were generated. CAD analysis was submitted and interpreted. High resolution complete right breast ul trasound was performed. COMPARISON: Comparison to multiple prior studies sequentially, with oldest reviewed study dated 05/03. BREAST PARENCHYMAL COMPOSITION: Dense: The breasts are heterogeneously dense, which may obscure small masses FINDINGS: MAMMOGRAPHIC FINDINGS: There are no suspicious masses, calcifications or architectural distortion in either breast to sugges t malignancy. ULTRASOUND: Complete US of all 4 quadrants of the right breast/s and retroareolar region was reviewed. Normal het erogeneous echotexture without focal solid or cystic mass. IMPRESSION: 1. No evidence for malignancy in either breast. 2. Routine yearly screening mammogram and regular clinical breast examination are recommended. BI-RADS Category 1: Negative Reviewed, dictated and finalized at location B. IMPRESSION: 1. No evidence for malignancy in either breast. 2. Routine yearly screening mammogram and regular clinical breast examination a re recommended. BI-RADS Category 1: Negative
--- OUTSIDE RECORDS SUMMARY | 2025-02-16 11:19 | XMS_ITS | Clinical Summary ---
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 Gender Identity Not on file Sexual [...] 3:35 PM CDT Height 160 cm (5' 3) 01/26/2021 3:35 PM CDT Body Mass Index 38.97 01/26/2021 3:35 PM CDT Plan of Treatment Not on file Insurance [facility] MEDICARE [facility]IC[facility] Address[facility] [address] [place] [address] MEDICARE [facility] [place] [facility] [place] Care Teams Emergency Services Director Relationship Specialty Start Date End Date Mumtaz Manjarrez MD [address] [place] [id number] PCP - General Family Medicine 11/14/20
--- OUTSIDE RECORDS SUMMARY | 2025-02-16 11:19 | XMS_ITS | Referral Summary ---
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
== END 2025-02-16 10:56 | disposition home or self-care (01) ==
LOC: ANHIMG 10:58
PROVIDERS: PCP Family Medicine
DX: N64.59 Other signs and symptoms in breast (principal); Z12.31 Encounter for screening mammogram for malignant neoplasm of breast
CPT/HCPCS: 76641; 77062; 77066; G0279